=== PATIENT | female | born 1980 | race Caucasian/White ===

== ENCOUNTER 2018-04-23 14:15 | Emergency (ER) | payer OTHER ==
[2018-04-23] MEDS ORDERED: ASPIRIN 81 MG TABLET, CHEWABLE PO ONE (15:15)
[2018-04-23] MEDS ORDERED: IPRATROPIUM/ALBUTEROL 0.5-2.5 MG/3 ML AMPUL NEB ONE (15:16)
--- NOTE | 2018-04-23 15:18 | ER Document Report ---
ED Medical Screen (RME) - General Chief Complaint: Chest Pain Stated Complaint: CHEST PAIN Time Seen by Provider: 04/23/18 15:15 Mode of Arrival: Ambulatory Information source: Patient Notes: Patient presents complaining of cough with difficulty breathing. Patient states that she was treated with a Z-Taye earlier this month and finished the antibiotics on 04/12/2018. Patient states over the past 5 days that her difficulty breathing has worsened. Patient denies any fever nausea or vomiting. Patient does complain of chest pain with coughing. Patient was seen at an urgent care today and her oxygen saturation after nebulizer treatments ranged from 85-92%. Patient denies any history of PE or DVT. hx: MS, migraines, allergies I have greeted and performed a rapid initial assessment of this patient. A comprehensive ED assessment and evaluation of the patient, analysis of test results and completion of the medical decision making process will be conducted by additional ED providers. TRAVEL OUTSIDE OF THE [place] IN LAST 30 DAYS: No - Related Data Allergies/Adverse Reactions: No Known Allergies Allergy (Verified 04/23/18 14:20) Past Medical History - Past Medical History Cardiac Medical History: Denies: Hx Coronary Artery Disease, Hx Heart Attack, Hx Hypertension Pulmonary Medical History: Denies: Hx Asthma, Hx Bronchitis, Hx COPD, Hx Pneumonia Neurological Medical History: Denies: Hx Cerebrovascular Accident, Hx Seizures Musculoskeltal Medical History: Denies Hx Arthritis Past Surgical History: Denies: Hx Hysterectomy - Immunizations Hx Diphtheria, Pertussis, Tetanus Vaccination: - unsure Physical Exam - Vital signs Vitals: Temp Pulse Resp BP Pulse Ox 98.1 F 102 H 18 148/86 H 91 L 04/23/18 14:57 04/23/18 14:57 04/23/18 14:57 04/23/18 14:57 04/23/18 14:57 - Respiratory Respiratory status: No respiratory distress. No: Respiratory distress Chest status: Pain with deep breathing Breath sounds: Nonproductive cough Chest palpation: Tender - Cardiovascular Rhythm: Tachycardia Heart sounds: S1 appreciated, S2 appreciated Course - Vital Signs Vital signs: Temp Pulse Resp BP Pulse Ox 98.1 F 102 H 18 148/86 H 91 L 04/23/18 14:57 04/23/18 14:57 04/23/18 14:57 04/23/18 14:57 09/23/18 14:57 Doctor's Discharge - Discharge Referrals: GIRISH JO NP [Primary Care Provider] - Follow up as needed
[2018-04-23 17:00] LABS: HEMATOCRIT 38.8 % (36.0-47.0); HEMOGLOBIN 13.1 g/dL (12.0-15.5); MEAN CORPUSCULAR HEMOGLOBIN 31.2 pg (27.0-33.4); MEAN CORPUSCULAR HGB CONC 33.7 g/dL (32.0-36.0); MEAN CORPUSCULAR VOLUME 93 fl (80-97); PLATELET COUNT 294 10^3/uL (150-450); RED BLOOD COUNT 4.19 10^6/uL (3.72-5.28); RED CELL DISTRIBUTION WIDTH 14.4 % (11.5-14.0); WHITE BLOOD COUNT 7.5 10^3/uL (4.0-10.5)
[2018-04-23 17:23] LABS: ALANINE AMINOTRANSFERASE 31 U/L (9-52); ALBUMIN 4.3 g/dL (3.5-5.0); ALKALINE PHOSPHATASE 80 U/L (38-126); ANION GAP 11 (5-19); ASPARTATE AMINO TRANSFERASE 31 U/L (14-36); BILIRUBIN,DIRECT 0.3 mg/dL (0.0-0.4); BILIRUBIN,TOTAL 0.3 mg/dL (0.2-1.3); BLOOD UREA NITROGEN 8 mg/dL (7-20); CALCIUM 9.7 mg/dL (8.4-10.2); CARBON DIOXIDE 24 mmol/L (22-30); CHLORIDE 108 mmol/L (98-107); CREATINE KINASE 237 U/L (30-135); GLUCOSE 109 mg/dL (75-110); SODIUM 142.5 mmol/L (137-145); TOTAL PROTEIN 7.6 g/dL (6.3-8.2)
--- NOTE | 2018-04-23 17:23 | RADIOLOGY REPORT (SQ) ---
EXAM DESCRIPTION: CHEST 2 VIEWS COMPLETED DATE/TIME: 04/23/2018 5:05 pm REASON FOR STUDY: cp, diff breathing COMPARISON: 03/17/2012. EXAM PARAMETERS: NUMBER OF VIEWS: two views TECHNIQUE: Digital Frontal and Lateral radiographic views of the chest acquired. RADIATION DOSE: NA LIMITATIONS: none FINDINGS: LUNGS AND PLEURA: No opacities, masses or pneumothorax. No pleural effusion. MEDIASTINUM AND HILAR STRUCTURES: No masses or contour abnormalities. HEART AND VASCULAR STRUCTURES: Heart normal size. No evidence for failure. BONES: No acute findings. HARDWARE: None in the chest. OTHER: No other significant finding. IMPRESSION: NO ACUTE RADIOGRAPHIC FINDING IN THE CHEST. TECHNICAL DOCUMENTATION: JOB ID: [id number] [email or web address]- All Rights Reserved Reading location - IP/workstation name: [email or web address]
[2018-04-23 17:34] LABS: CREATINE KINASE MB 1.19 ng/mL (<4.55)
[2018-04-23 17:39] LABS: ABSOLUTE LYMPHOCYTES# (MANUAL) 0.4 10^3/uL (0.5-4.7); ABSOLUTE MONOCYTES # (MANUAL) 0.1 10^3/uL (0.1-1.4); BASOPHILS % (MANUAL) 1 % (0-2); EOSINOPHILS % (MANUAL) 0 % (0-6); LYMPHOCYTES % (MANUAL) 5 % (13-45); MONOCYTES % (MANUAL) 1 % (3-13); SEGMENTED NEUTROPHILS % (MAN) 93 % (42-78); TOTAL CELLS COUNTED 100
[2018-04-23 17:40] LABS: ANISOCYTOSIS SLIGHT; PLATELET COMMENT ADEQUATE
[2018-04-23 17:42] LABS: TROPONIN I < 0.012 ng/mL
--- NOTE | 2018-04-23 19:12 | EKG REPORT ---
SEVERITY:- ABNORMAL ECG - SINUS TACHYCARDIA PROBABLE LEFT ATRIAL ABNORMALITY LEFT AXIS DEVIATION BORDERLINE T ABNORMALITIES, ANTERIOR LEADS : Confirmed by: Micheline Ferrer MD 23-Apr-2018 19:11:35
[2018-04-23 19:32] LABS: VENOUS BLOOD BASE EXCESS -2.6 mmol/L; VENOUS BLOOD HCO3 21.7 mmol/L (20-32); VENOUS BLOOD PCO2 35.7 mmHg (35-63); VENOUS BLOOD PH 7.4 (7.30-7.42)
[2018-04-23] MEDS ORDERED: METHYLPREDNISOLONE INJ 125 MG/2 ML SDV IV ONE (21:18)
[2018-04-23] MEDS ORDERED: DOXYCYCLINE HYCLATE 100 MG TABLET PO ONE (21:24)
--- NOTE | 2018-04-23 21:24 | ER Document Report ---
ED General - General Chief Complaint: Chest Pain Stated Complaint: CHEST PAIN Time Seen by Provider: 04/23/18 15:15 Mode of Arrival: Ambulatory Notes: Patient presents complaining of cough with difficulty breathing. Patient states that she was treated with a Z-Taye earlier this month and finished the antibiotics on 04/12/2018. Patient states over the past 5 days that her difficulty breathing has worsened. Patient denies any fever nausea or vomiting. Patient does complain of chest pain with coughing. Patient was seen at an urgent care today and her oxygen saturation after nebulizer treatments ranged from 85-92%. Patient denies any history of PE or DVT. hx: MS, migraines, allergies TRAVEL OUTSIDE OF THE [place] IN LAST 30 DAYS: No - HPI Onset: Other Onset/Duration: Persistent Quality of pain: Burning Severity: Mild Associated symptoms: Chest pain, Productive cough. denies: Fever Exacerbated by: Coughing Relieved by: Denies Similar symptoms previously: Yes Recently seen / treated by doctor: Yes - Related Data Allergies/Adverse Reactions: No Known Allergies Allergy (Verified 04/23/18 14:20) Past Medical History - General Information source: Patient - Social History Smoking Status: Current Every Day Smoker Chew tobacco use (# tins/day): No Frequency of alcohol use: None Drug Abuse: None Lives with: Family Family History: Reviewed & Not Pertinent Patient has suicidal ideation: No Patient has homicidal ideation: No - Past Medical History Cardiac Medical History: Denies: Hx Coronary Artery Disease, Hx Heart Attack, Hx Hypertension Pulmonary Medical History: Denies: Hx Asthma, Hx Bronchitis, Hx COPD, Hx Pneumonia Neurological Medical History: Denies: Hx Cerebrovascular Accident, Hx Seizures Renal/ Medical History: Denies: Hx Peritoneal Dialysis Musculoskeletal Medical History: Denies Hx Arthritis Past Surgical History: Reports: Hx Breast Surgery - augmentation, Hx Tubal Ligation. Denies: Hx Hysterectomy - Immunizations Hx Diphtheria, Pertussis, Tetanus Vaccination: - unsure Review of Systems - Review of Systems Notes: REVIEW OF SYSTEMS: CONSTITUTIONAL : Denies fever, chills, or sweats. Denies weight loss, recent hospitalizations. EENT: Denies visual changes, eye pain. Denies oral lesions, difficulty swallowing. CARDIOVASCULAR: . Denies palpitations. Denies lower extremity edema. RESPIRATORY: GASTROINTESTINAL: Denies abdominal pain or distention. Denies nausea, vomiting , or diarrhea. Denies blood in vomitus, stools, or per rectum. Denies black, tarry stools. Denies constipation. GENITOURINARY: Denies difficulty urinating, painful urination, frequency, blood in urine, or vaginal discharge. MUSCULOSKELETAL: Denies back or neck pain or stiffness. Denies joint pain or swelling. SKIN: Denies rash, lesions or sores. HEMATOLOGIC : Denies easy bruising or bleeding. LYMPHATIC: Denies swollen glands. NEUROLOGICAL: Denies confusion or altered mental status. Denies loss of consciousness. Denies dizziness or lightheadedness. Denies headache. Denies weakness or paralysis. Denies problems difficulty with ambulation, slurred speech. Denies sensory loss, numbness, or tingling. Denies seizures. PSYCHIATRIC: Denies anxiety or stress. Denies depression, suicidal ideation, or homicidal ideation. Denies visual or auditory hallucinations. Physical Exam - Vital signs Vitals: Temp Pulse Resp BP Pulse Ox 98.1 F 102 H 18 148/86 H 91 L 04/23/18 14:57 04/23/18 14:57 04/23/18 14:57 04/23/18 14:57 04/23/18 14:57 Interpretation: Hypertensive, Hypoxic. No: Febrile - Notes Notes: PHYSICAL EXAMINATION: GENERAL: Well-appearing, well-nourished and in no acute distress. HEAD: Atraumatic, normocephalic. EYES: Pupils equal round and reactive to light, extraocular movements intact, conjunctiva are normal. ENT: Nares patent, oropharynx clear without exudates. Moist mucous membranes. NECK: Normal range of motion, supple without lymphadenopathy LUNGS: Mild expiratory wheezing in the upper lung plascencia. No accessory muscle use. Patient able to speak in full sentences. HEART: Tachycardic, regular rhythm ABDOMEN: Soft, nontender, nondistended abdomen. No guarding, no rebound. No masses appreciated. Female : deferred Musculoskeletal: Normal range of motion, no pitting or edema. No cyanosis. NEUROLOGICAL: Cranial nerves grossly intact. Normal speech, normal gait. Normal sensory, motor exams PSYCH: Normal mood, normal affect. SKIN: Warm, Dry, normal turgor, no rashes or lesions noted. Course - Re-evaluation Re-evalutation: 04/25/18 12:58 Laboratory 04/23/18 04/23/18 04/23/18 16:15 16:15 16:15 WBC 7.5 RBC 4.19 Hgb 13.1 Hct 38.8 MCV 93 MCH 31.2 MCHC 33.7 RDW 14.4 H Plt Count 294 Total Counted 100 Seg Neutrophils % Not Reportable Seg Neuts % (Manual) 93 H Lymphocytes % Not Reportable Lymphocytes % (Manual) 5 L Monocytes % Not Reportable Monocytes % (Manual) 1 L Eosinophils % Not Reportable Eosinophils % (Manual) 0 Basophils % Not Reportable Basophils % (Manual) 1 Absolute Neutrophils Not Reportable Abs Neuts (Manual) 7.0 Absolute Lymphocytes Not Reportable Abs Lymphs (Manual) 0.4 L Absolute Monocytes Not Reportable Abs Monocytes (Manual) 0.1 Absolute Eosinophils Not Reportable Absolute Eos (Manual) 0.0 Absolute Basophils Not Reportable Abs Basophils (Manual) 0.1 Platelet Comment ADEQUATE Anisocytosis SLIGHT VBG pH VBG pCO2 VBG HCO3 VBG Base Excess Sodium 142.5 Potassium 4.0 Chloride 108 H Carbon Dioxide 24 Anion Gap 11 BUN 8 Creatinine 0.63 Est GFR ( Amer) > 60 Est GFR (Non-Af Amer) > 60 Glucose 109 Calcium 9.7 Magnesium 2.3 Total Bilirubin 0.3 Direct Bilirubin 0.3 Neonat Total Bilirubin Not Reportable Neonat Direct Bilirubin Not Reportable Neonat Indirect Bili Not Reportable AST 31 ALT 31 Alkaline Phosphatase 80 Creatine Kinase 237 H CK-MB (CK-2) 1.19 Troponin I < 0.012 Total Protein 7.6 Albumin 4.3 04/23/18 19:21 WBC RBC Hgb Hct MCV MCH MCHC RDW Plt Count Total Counted Seg Neutrophils % Seg Neuts % (Manual) Lymphocytes % Lymphocytes % (Manual) Monocytes % Monocytes % (Manual) Eosinophils % Eosinophils % (Manual) Basophils % Basophils % (Manual) Absolute Neutrophils Abs Neuts (Manual) Absolute Lymphocytes Abs Lymphs (Manual) Absolute Monocytes Abs Monocytes (Manual) Absolute Eosinophils Absolute Eos (Manual) Absolute Basophils Abs Basophils (Manual) Platelet Comment Anisocytosis VBG pH 7.40 VBG pCO2 35.7 VBG HCO3 21.7 VBG Base Excess -2.6 Sodium Potassium Chloride Carbon Dioxide Anion Gap BUN Creatinine Est GFR ( Amer) Est GFR (Non-Af Amer) Glucose Calcium Magnesium Total Bilirubin Direct Bilirubin Neonat Total Bilirubin Neonat Direct Bilirubin Neonat Indirect Bili AST ALT Alkaline Phosphatase Creatine Kinase CK-MB (CK-2) Troponin I Total Protein Albumin Chest X-Ray 04/23/18 15:15 IMPRESSION: NO ACUTE RADIOGRAPHIC FINDING IN THE CHEST. 04/25/18 12:58 Presentation is most consistent with a viral upper respiratory infection. Patient is overall well appearance, vitals within normal limits, well-hydrated. Patient denies any headache, neck pain, and has no evidence of meningismus on examination. Lungs are significant for wheezing no evidence of respiratory distress. Based on clinical exam and history, I do not suspect an acute pneumonia, meningitis, strep pharyngitis, or an acute encephalitis. Patient did receive breathing treatments which improved her cough and shortness of breath greatly. CBC without leukocytosis. CMP without significant electrolyte abnormality. Troponin within normal limits. Patient provided the opportunity to ask questions, and express concerns. Discharge instructions discussed. Patient is agreeable with discharge home. Return indications explained and discussed with the patient who displays understanding. Patient encouraged to return to the emergency department immediately with any concerns. Results were discussed with the patient at this point, after careful consideration I feel that that patient can be discharged from the emergency department, the patient was educated treatments and reasons to return to the emergency department based on their presumed diagnosis as noted above, they were advised to followup with a primary care physician in 2-3 days. Patient was agreeable to plan of care. Dictation on this chart was performed using voice recognition software and may result in unintended grammatical, spelling, syntax or errors. - Vital Signs Vital signs: Temp Pulse Resp BP Pulse Ox 98.7 F 102 H 21 H 139/87 H 96 04/23/18 21:39 04/23/18 14:57 04/23/18 21:39 04/23/18 21:39 04/23/18 21:39 - Laboratory Result Diagrams: 04/23/18 16:15 04/23/18 16:15 Laboratory results interpreted by me: 04/23/18 04/23/18 16:15 16:15 RDW 14.4 H Seg Neuts % (Manual) 93 H Lymphocytes % (Manual) 5 L Monocytes % (Manual) 1 L Abs Lymphs (Manual) 0.4 L Chloride 108 H Creatine Kinase 237 H - Diagnostic Test Radiology reviewed: Image reviewed, Reports reviewed Discharge - Discharge Clinical Impression: Bronchitis, Wheezing, Cough, Laryngitis, Elevated blood pressure reading Pharyngitis Qualifiers: Pharyngitis/tonsillitis etiology: unspecified etiology Qualified Code(s): J02.9 - Acute pharyngitis, unspecified Condition: Good Disposition: HOME, SELF-CARE Instructions: Bronchitis With Bronchospasm (Wheezing) ([facility]), Laryngitis ([facility]), Sore Throat ([facility]), Upper Respiratory Illness ([facility]) Additional Instructions: Your symptoms are most likely due to a viral infection it should resolve over the next 7-14 days. You should take [id number]-dcy-[id number] guanfacine per bottle instructions to help thin the mucus. For nasal congestion: I would recommend that you get tctx-ril-ddcvjah oxymetazoline also known is afrin. Use only per bottle instructions and be sure to never use this for more than 3 days if you can develop severe rebound congestion. You may also use tylenol or ibuprofen as needed for aches and thorat discomfort. Please be sure to drink plenty of fluids and get rest. Return to the emergency department he began having difficulty breathing, chest pain, persistent vomiting, or any other symptoms that are concerning to you. You were seen for symptoms most consistent with bronchitis. This can take up to 12 weeks to fully resolve. This is generally due to a viral infection. Please follow-up with your primary doctor in the next 2-3 days. Return if you develop worsening cough, vomiting, fever >100.4, pass out, begin coughing blood, or have any other symptoms that are concerning to you. Please use the medications prescribed today as directed. Prescriptions: Doxycycline Hyclate 100 mg PO BID #14 capsule Guaifenesin/D-Methorphan Hb [Robitussin-Dm Syrup 10 Ml Udcup] 10 ml PO Q12H PRN #75 ml PRN Reason: Prednisone [Deltasone 20 mg Tablet] 3 tab PO DAILY 5 Days #15 tablet Forms: Smoking Cessation Education, Elevated Blood Pressure Referrals: GIRISH JO NP [Primary Care Provider] - Follow up as needed
[2018-04-23 21:41] VITALS: BP 139/87
== END 2018-04-23 21:46 | disposition home or self-care (01) ==
LOC: ER 14:15
DX: J40 Bronchitis, not specified as acute or chronic (principal); J04.0 Acute laryngitis; J02.9 Acute pharyngitis, unspecified; R05 Cough; R07.89 Other chest pain; R06.09 Other forms of dyspnea; R00.0 Tachycardia, unspecified; R06.2 Wheezing; R03.0 Elevated blood-pressure reading, without diagnosis of hypertension; F17.200 Nicotine dependence, unspecified, uncomplicated
CPT/HCPCS: 93005; 94640; 99285; 96374; 36415; 82553; 82550; 83735; 85025; 80053; 84484; 82803; 71046; 93010; J2930; J7620

== ENCOUNTER → 2018-06-13 | Outpatient (CLI) | payer OTHER ==
--- NOTE | 2018-06-13 15:30 | WOMENS IMAGING REPORT ---
EXAM DESCRIPTION: 3D SCREENING MAMMO BILAT COMPLETED DATE/TIME: 06/13/2018 3:11 pm REASON FOR STUDY: SCREENING MAMMO Z12.31 ENCNTR SCREEN MAMMOGRAM FOR MALIGNANT NEOPLASM OF BHAVNA COMPARISON: No previous TECHNIQUE: Standard craniocaudal and mediolateral oblique views of each breast recorded using digita l acquisition and breast tomosynthesis. Additional "push-back craniocaudal and mediolateral oblique images acquired. LIMITATIONS: None. FINDINGS: IMPLANTS: Bilateral subpectoral implants. Findings present which are benign by mammographic criteria. No suspicious masses, calcifications or a rchitectural distortion. Read with the assistance of CAD. .[facility] - R2 Cenova Version 1.3 .[facility] - R2 Cenova Version 1.3 .[facility] - R2 Cenova Version 2.4 .[facility] - R2 Cenova Version 2.4 .[facility] - R2 Lay Out Worker Version 9.2 Benign mammographic findings may include one or more of the following: Smooth masses, popcorn/rim/co arse calcifications, asymmetries, post-procedure changes, and lesions with long-standing stability. IMPRESSION: BENIGN MAMMOGRAPHIC FINDINGS. BIRADS 2 BREAST DENSITY: c. The breasts are heterogeneously dense, which may obscure small masses. BIRAD: 2 BENIGN FINDING(S) RECOMMENDATION: ROUTINE SCREENING Please continue yearly bilateral screening mammography/tomosynthesis in June 2019 COMMENT: The patient has been notified of the results by letter per [place] requirements. Additional no tification policies are in place for contacting patient with suspicious or incomplete findings. Quality ID #[id number]: The [employer] recommends an annual screening mammogram for women aged 40 years or over. This facility utilizes a reminder system to ensure that all patients receive reminder letters, and/or direct phone calls for appointments. This includes reminders for routine scr eening mammograms, diagnostic mammograms, or other Breast Imaging Interventions when appropriate. Th is patient will be placed in the appropriate reminder system. The [employer] (ACR) has developed recommendations for screening MRI of the breast s in certain patient populations, to be used in conjunction with mammography. Breast MRI surveillanc e may be appropriate for women with more than 20% lifetime risk of developing breast cancer as deter mined by genetic testing, significant family history of the disease, or history of mantle radiation f or Hodgkins Disease. ACR Practice Guidelines 2008. DBT Technology DBT is a type of tomographic mammography. With conventional mammography, overlapping breast tissue ma y make lesions difficult to detect, even with good compression. DBT uses an x-ray tube that rotates a round the breast, taking images at different angles. These images are then combined to create thin sl ices of the breast that the radiologist can view as a 3D reconstruction. The Hologic unit can perform full-field digital mammograms (2D imaging); or DBT (3D imaging); or both, in a combination mode that quickly performs both the mammogram and the tomosynthesis scan while the breast is still compressed. PQRS 6045F: Fluoroscopic imaging is not utilized for breast tomosynthesis. TECHNICAL DOCUMENTATION: FINDING NUMBER: (1) ASSESSMENT: (1) JOB ID: [id number] [employer]- All Rights Reserved Reading location - IP/workstation name: [email or web address]
== END ==
LOC: WI 14:44
PROVIDERS: ATTEND Nurse Practitioner Primary Care
DX: Z12.31 Encounter for screening mammogram for malignant neoplasm of breast (principal)
CPT/HCPCS: 77063; 77067

== ENCOUNTER → 2018-07-19 | Outpatient (CLI) | payer OTHER ==
--- NOTE | 2018-07-19 11:33 | RADIOLOGY REPORT (SQ) ---
EXAM DESCRIPTION: MRI HEAD COMBO COMPLETED DATE/TIME: 07/19/2018 9:55 am REASON FOR STUDY: ABNORMAL THYROID FUNCTION STUDIES (R94.6) R94.6 ABNORMAL RESULTS OF THYROID FUNCT ION STUDIES COMPARISON: None. TECHNIQUE: Multiplanar imaging includes non-contrasted T1, T2, FLAIR, diffusion with ADC map and pos t gadolinium contrast T1 sequences. Thin sections through the pituitary fossa pre and post contrast. Images stored on PACS. CONTRAST TYPE AND DOSE: mL RENAL FUNCTION: None required. The patient is less than 50 years old. LIMITATIONS: None. FINDINGS: ANATOMY: No anomalies. Normal vascular flow voids. CSF SPACES: Normal in size and contour. No hemorrhage. PITUITARY FOSSA: No masses. No asymmetry. Infundibulum midline. CEREBRUM: Sulci and gyri normal in size and contour. Normal white matter signal on FLAIR imaging. No evidence of hemorrhage, mass, or extraaxial fluid collection. No abnormal enhancement post contrast. POSTERIOR FOSSA: No signal alteration. No hemorrhage. No edema, masses, or mass effect. Internal aud itory canals, cerebello-pontine angles, mastoids normal. No enhancing lesions. ORBITS: No masses. Globes normal. PARANASAL SINUSES: No fluid levels. Mucosa normal. OTHER: No other significant finding. IMPRESSION: NORMAL MRI OF THE BRAIN AND PITUITARY FOSSA WITHOUT AND WITH INTRAVENOUS GADOLINIUM CONT RAST. TECHNICAL DOCUMENTATION: JOB ID: [id number] [employer]- All Rights Reserved Reading location - IP/workstation name: [email or web address]
== END ==
LOC: RAD 08:54
PROVIDERS: ATTEND Internal Medicine Endocrinology, Diabetes & Metabolism
DX: R94.6 Abnormal results of thyroid function studies (principal)
CPT/HCPCS: 70553; A9576

== ENCOUNTER 2018-12-11 08:33 | Day surgery (SDC) | payer OTHER ==
[~2018-12-11 08:33] MED LIST: PROPOFOL INJ 200 MG/20 ML VIAL IV ONE
[2018-12-11 10:09] VITALS: BP 116/76
--- NOTE | 2018-12-11 13:18 | Operative Report ---
Operative Report DATE OF SURGERY: 12/11/18 Operative Report: The risks, benefits and alternatives of the procedure including the risk of bleeding, perforation requiring surgery have been explained to the patient in detail and informed consent has been obtained. The patient is taken back to the endoscopy suite and placed in a left, lateral decubital position. Timeout was called. Propofol medication is administered. A rectal examination is done which did not reveal any masses, tears or fissures. An Olympus videoscope was introduced into the patient's rectum. The scope was then carefully advanced all the way to the cecum. The cecum was identified by the usual anatomical landmarks including the ileocecal valve as well as the appendiceal office. Photodocumentation is obtained. Prep was good. The scope was then sequentially pulled back via the various portions of the colon including the ascending colon, hepatic flexure, transverse colon, splenic flexure, descending colon and finally into the rectosigmoid portions of the colon. Retroflexion maneuver is performed. The risks benefits and alternatives of the procedure explained to the patient in detail and informed consent is obtained.A GIF Olympus video scope was inserted into the patient's mouth and hypopharynx, the esophagus is identified intubated and insufflated, the scope was then advanced through the esophagus stomach and duodenum, retroflexion maneuver is done, the esophagus stomach and first and second portions of the duodenum examined. PREOPERATIVE DIAGNOSIS: Personal history of polyp. Epigastric pain POSTOPERATIVE DIAGNOSIS: Normal screening colonoscopy. Gastritis status post bi opsy without Helicobacter pylori OPERATION: Diagnostic colonoscopy. EGD with biopsy SURGEON: PRATIK SHEETS ANESTHESIA: LMAC TISSUE REMOVED OR ALTERED: As noted above. COMPLICATIONS: None. ESTIMATED BLOOD LOSS: None. INTRAOPERATIVE FINDINGS: As noted above. PROCEDURE: Patient tolerated the procedure well. No immediate postprocedure complications are noted. Patient discharged in good condition. Discharge date 12/11/2018. Discharge diet: Regular. Discharge activity: Regular. 2 to 3-week follow-up to discuss findings. Patient is instructed to call the office or proceed to the emergency room should there be any further problems or questions. Wait on the pathology. 10-year surveillance colonoscopy.
== END 2018-12-11 10:02 | disposition home or self-care (01) ==
LOC: END 08:33
PROVIDERS: ATTEND Internal Medicine Gastroenterology
DX: Z12.11 Encounter for screening for malignant neoplasm of colon (principal); K29.50 Unspecified chronic gastritis without bleeding; Z86.010 Personal history of colon polyps; G35 Multiple sclerosis; F17.210 Nicotine dependence, cigarettes, uncomplicated; Z79.899 Other long term (current) drug therapy
CPT/HCPCS: 43239; 45378; 88305 ×2; 00813; J2704; 813; G0121

== ENCOUNTER 2019-04-03 19:24 | Emergency (ER) | payer OTHER ==
[2019-04-03] MEDS ORDERED: FENTANYL CITRATE INJ/PF 100 MCG/2 ML AMPUL IV ONE (20:11)
[2019-04-03] MEDS ORDERED: ONDANSETRON HCL INJ/PF 4 MG/2 ML SDV IV ONE (20:12)
[2019-04-03] MEDS ORDERED: DIPH/PERTUSS(ACELL)/TETANUS VAC/PF 0.5 ML SYR (>=10YO) IM ONE (20:13)
--- NOTE | 2019-04-03 20:19 | ER Document Report ---
ED Fall - General Chief Complaint: Fall Stated Complaint: TROUBLE BREATHING Time Seen by Provider: 04/03/19 20:05 Primary Care Provider: STEFANY AGARWAL MD [ACTIVE STAFF] - Follow up tomorrow Notes: Patient is a 39 year old female that comes to the Emergency Department for chief complaint of a fall injury. 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 Patient hit her head on the gravel, sustained abrasions to the left forearm, left leg, left ankle. Patient reports severe pain in her left shoulder area towards the top and upper back with pain and difficulty moving her left arm as a result. Has been at bedside states that she appeared to pass out for several seconds. No seizure activity reported. Patient states she was nauseat ed but this resolved. No vomiting. She denies shortness of breath, chest pain, abdominal pain. She is not on a blood thinner. Past medical history of MS, hypothyroidism. She is not up-to-date on her tetanus. TRAVEL OUTSIDE OF THE [place] IN LAST 30 DAYS: No - Related data Allergies/Adverse Reactions: No Known Allergies Allergy (Verified 12/11/18 08:49) Past Medical History - General Information source: Patient - Social History Smoking Status: Current Every Day Smoker Frequency of alcohol use: None Drug Abuse: None Lives with: Family Family History: Reviewed & Not Pertinent Patient has suicidal ideation: No Patient has homicidal ideation: No - Past Medical History Cardiac Medical History: Denies: Hx Coronary Artery Disease, Hx Heart Attack, Hx Hypertension Pulmonary Medical History: Reports: Hx Pneumonia - 2018 Denies: Hx Asthma, Hx Bronchitis, Hx COPD Neurological Medical History: Denies: Hx Cerebrovascular Accident, Hx Seizures Renal/ Medical History: Denies: Hx Peritoneal Dialysis Musculoskeletal Medical History: Denies Hx Arthritis Past Surgical History: Reports: Hx Breast Surgery - augmentation, Hx Tubal Ligation. Denies: Hx Hysterectomy - Immunizations Immunizations up to date: Yes Hx Diphtheria, Pertussis, Tetanus Vaccination: - unsure Review of Systems - Review of Systems Constitutional: No symptoms reported EENT: No symptoms reported Cardiovascular: No symptoms reported Respiratory: No symptoms reported Gastrointestinal: No symptoms reported Genitourinary: No symptoms reported Female Genitourinary: No symptoms reported Musculoskeletal: See HPI Skin: See HPI Hematologic/Lymphatic: No symptoms reported Neurological/Psychological: See HPI Physical Exam - Vital signs Vitals: Temp Pulse Resp BP Pulse Ox 97.7 F 78 16 130/77 H 95 04/03/19 19:37 04/03/19 19:37 04/03/19 19:37 04/03/19 19:37 04/03/19 19:37 - Notes Notes: GENERAL: Patient in obvious pain, appears very uncomfortable HEAD: Normocephalic, no signs of trauma over the head, no open wounds. EYES: Pupils equal, round, and reactive to light. Extraocular movements intact. ENT: Oral mucosa moist, tongue midline. Oropharynx unremarkable. Airway patent. Nares patent, no nasal septal hematoma, TM's intact. NECK: Full range of motion. Supple. Trachea midline. LUNGS: Clear to auscultation bilaterally, no wheezes, rales, or rhonchi. No respiratory distress. No tenderness or signs of trauma over the chest. HEART: Regular rate and rhythm. No murmur ABDOMEN: Soft, non-tender. Non-distended. No signs of trauma. GENITOURINARY: Deferred EXTREMITIES: Patient appears to have possible deformity at the left shoulder, she cannot move the shoulder. She can efficiency clerk my fingers. Sensation and capillary refill intact. Small abrasions of the elbow. Unremarkable otherwise except for skin abrasion/road rash over the left mid tibial area and the left foot. No bony tenderness over the lower extremities. Normal distal neurovascular exam of the lower extremities. BACK: Pain with palpation over the general cervical area. No saddle anesthesia, normal distal neurovascular exam. NEUROLOGICAL: Alert and oriented x3. Normal speech. Cranial nerves II through XII grossly intact. SKIN: Warm, dry, normal turgor. Course - Re-evaluation Re-evalutation: CT of the head and neck without acute findings. X-ray of the left shoulder shows anterior inferior shoulder dislocation and associated humeral head fracture. Specifically there is a comminuted mildly displaced fracture of the posterior lateral humeral head consistent with acute Hill-Sachs fracture. Discussed with Dr. George, he recommends orthopedic consultation first. 04/03/19 22:[address] Agarwal, orthopedic surgeon on-call, he does recommend that we consciously sedate and relocate the shoulder, place shoulder immobilizer, and patient can be followed in the orthopedic office. I did discuss this patient in detail call patient and significant other state understanding and agreement with plan. Shoulder reduction via conscious sedation was performed by both myself and Dr. George at bedside, see procedure notes on this. X-ray shows successful reduction with the fracture still seen without any additional findings. Patient provided with shoulder immobilizer, follow-up instructions. Discussed precautions, headache precautions, return precautions. Patient and significant other state understanding and agreement. Stable at time of discharge. 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 Medications administered: Ketamine, Diprivan Reversal agents: None I personally performed/intraservice time: Sedation - Performed with Dr. George, Procedure - Performed with Dr. George Complications: Yes - See notes below Notes: Patient was given 70 mg of IV ketamine and 70 mg IV propofol administered by Dr. George at bedside. Initially patient obtained excellent sedation, however then she had depressed respiratory drive and apnea, this caused hypoxia to develop, she did desaturate even on 2 L nasal cannula down to 68% pulse oxygen saturation with a good pleth. As Dr. George perform the procedure to reduce the shoulder I did use the [id number], obtained a seal, performed modified chin lift, and began bagging the patient. Patient almost instantly improved her oxygen saturation at 1st to 91% and then to 98% and 100%. Bagging was performed for less than 1 minute when patient started performing spontaneous respirations. After this patient maintained her oxygen saturation without additional decompensation. Patient was not sedated for an extended period, awoke without difficulty, obtained normal mental status without any delay. No other complications. - Joint Reduction/Fracture Care Left Shoulder Consent obtained: Yes Conscious sedation: Yes Pre-procedure NV exam: Yes Fracture: Closed Manipulation comment: Downward manipulation performed by applying force at the antecubital area Post-procedure NV exam: Yes Post-reduction x-ray: Joint reduced. No: No fracture seen - Fracture from before the reduction was still seen without any obvious new fracture Reduction attempts: 1 Complications: No Notes: Shoulder easily reduced and maintained in shoulder immobilizer. Actual reduction procedure was performed by Dr. George. Discharge - Discharge Clinical Impression: Abrasion of skin Fall Qualifiers: Encounter type: initial encounter Qualified Code(s): W19.XXXA - Unspecified fall, initial encounter Dislocation of left shoulder joint Qualifiers: Encounter type: initial encounter Qualified Code(s): S43.005A - Unspecified dislocation of left shoulder joint, initial encounter Fracture of humeral head, left, closed Qualifiers: Encounter type: initial encounter Qualified Code(s): S42.292A - Other displaced fracture of upper end of left humerus, initial encounter for closed fracture Condition: Stable Disposition: HOME, SELF-CARE Additional Instructions: The CAT scan imaging of your head and neck did not show any concerning findings. He did have a shoulder dislocation and a fracture called a Hill-Sachs fracture. I spoke with orthopedic surgeon Dr. Grace leo, please call the listed referral tomorrow to schedule your close follow-up for additional treatment. Take the pain medication as prescribed if needed. Wear the shoulder immobilizer, do not remove this. You can ice the shoulder. The skin abrasions on your extremities will heal with time, keep clean, clean with soap and water, keep topical antibiotics over the area. If you develop numbness in the arm or hand, weakness of the hand muscles, arm swelling, or arm discoloration, or any other concerning symptoms, return immediately. Prescriptions: Oxycodone HCl/Acetaminophen [Percocet 5-325 mg Tablet] 1 - 2 tab PO Q6HP PRN #20 tablet PRN Reason: Referrals: STEFANY AGARWAL MD [ACTIVE STAFF] - Follow up tomorrow
[2019-04-03] MEDS ORDERED: HYDROMORPHONE HCL INJ/PF 2 MG/ML AMPULE IV ONE ×2 (20:48→21:25)
[2019-04-03] MEDS ORDERED: HYDROMORPHONE HCL INJ/PF 2 MG/ML AMPULE ONE (21:00)
--- NOTE | 2019-04-03 21:42 | RADIOLOGY REPORT (SQ) ---
Left shoulder two view on 04/03/2019 at 8:52 PM CLINICAL INDICATION: Left shoulder pain after fall COMPARISON: None FINDINGS: There is anterior inferior dislocation of the humeral head in relation to the glenoid. There is an associated comminuted, mildly displaced fracture of the posterior lateral humeral head consistent with acute Hill-Sachs fracture. Would recommend reimaging after relocation. The AC joint is well aligned. No other fracture is noted. IMPRESSION: Anterior shoulder dislocation with associated humeral head fracture.
--- NOTE | 2019-04-03 21:54 | RADIOLOGY REPORT (SQ) ---
CT BRAIN AND CERVICAL SPINE EXAM DATE: 04/03/2019 8:12 PM CDT HISTORY: Trauma. COMPARISON: None. TECHNIQUE: CT scan of the brain and cervical spine without IV contrast. This exam was performed according to our departmental dose-optimization program, which includes automated exposure control, adjustment of the mA and/or kV according to patient size and/or use of iterative reconstruction technique. FINDINGS: BRAIN: The ventricles, cisterns, and sulci are age-appropriate. No evidence of acute infarction, intracranial hemorrhage, extra-axial fluid collection, or midline shift. No air-fluid levels are seen in the paranasal sinuses to suggest acute sinusitis. No depressed skull fracture. CERVICAL SPINE: No acute cervical fracture or prevertebral soft tissue swelling. There is straightening of the normal cervical lordosis, which may be due to cervical collar, muscle spasm, or patient positioning. The facet joints and disc spaces are preserved. No advanced canal stenosis is identified. IMPRESSION: 1. No acute intracranial hemorrhage. 2. No acute fracture or subluxation of the cervical spine.
[2019-04-03] MEDS ORDERED: PROPOFOL INJ 200 MG/20 ML VIAL IV ONE (22:07)
[2019-04-03] MEDS ORDERED: KETAMINE HCL INJ 500 MG/10 ML VIAL IV ONE (22:07)
[2019-04-03] MEDS ORDERED: ONDANSETRON HCL INJ/PF 4 MG/2 ML SDV ONE (23:03)
[2019-04-03] MEDS ORDERED: HYDROCODONE/ACETAMINOPHEN 5-325 MG (6 TAB/ER DISP) PO PRN (23:35)
--- NOTE | 2019-04-03 23:49 | RADIOLOGY REPORT (SQ) ---
EXAM DESCRIPTION: XR SHOULDER 1 VIEW COMPLETED DATE/TME: 04/03/2019 00:00 CLINICAL HISTORY: 39 years, Female, post reduction COMPARISON: 2 view shoulder today's date NUMBER OF VIEWS: 1 TECHNIQUE: Single view left shoulder LIMITATIONS: None. FINDINGS: Interval reduction of the previously noted humeral dislocation. Fracture deformity appears grossly stable. IMPRESSION: Interval reduction copyright 2010 [employer]- All Rights Reserved
[2019-04-04 00:50] VITALS: BP 126/84
== END 2019-04-04 01:14 | disposition home or self-care (01) ==
LOC: ER 19:24
DX: S43.005A Unspecified dislocation of left shoulder joint, initial encounter (principal); S42.292A Other displaced fracture of upper end of left humerus, initial encounter for closed fracture; R06.00 Dyspnea, unspecified; V87.8XXA Person injured in other specified noncollision transport accidents involving motor vehicle (traffic), initial encounter; F17.200 Nicotine dependence, unspecified, uncomplicated; Z23 Encounter for immunization; G35 Multiple sclerosis; E03.9 Hypothyroidism, unspecified
CPT/HCPCS: 73020; 73030; 70450; 72125; 90715; 23650; L3650; L0120; J3010; J3490; J1170; J2405; J2704; L0172

== ENCOUNTER → 2020-08-05 | Outpatient (CLI) | payer OTHER | LOC: OD 07:46 | PROVIDERS: ATTEND Otolaryngology | DX: J30.9 Allergic rhinitis, unspecified (principal) | CPT/HCPCS: 36415; 82785; 86003 ==

== ENCOUNTER → 2020-08-08 | Outpatient (CLI) | payer OTHER | LOC: RAD 08:18 | PROVIDERS: ATTEND Otolaryngology | DX: J30.9 Allergic rhinitis, unspecified (principal) | CPT/HCPCS: 70486 ==